=== PATIENT | female | born 1965 | race Caucasian/White ===

== ENCOUNTER 2018-09-13 06:01 | Day surgery (SDC) | payer OTHER ==
[2018-09-13] MEDS ORDERED: CEFAZOLIN 2 GM/50 ML (PMX) 50 ML IVPB (07:00)
== END 2018-09-13 09:40 | disposition home or self-care (01) ==
LOC: SDS 06:01
DX: N92.4 Excessive bleeding in the premenopausal period (principal); Z53.8 Procedure and treatment not carried out for other reasons; I10 Essential (primary) hypertension; E11.9 Type 2 diabetes mellitus without complications; E66.01 Morbid (severe) obesity due to excess calories; Z68.45 Body mass index [BMI] 70 or greater, adult
CPT/HCPCS: 82962; 93005